=== PATIENT | male | born 1955 | race Caucasian/White ===

== ENCOUNTER 2016-10-24 03:06 | Emergency (ER) | payer OTHER ==
[~2016-10-24] VITALS: Ht 188 cm; Wt 138.3 kg
[~2016-10-24 03:06] MED LIST: AMLO2.5T PO; ASPI-231 PO; CLOP75TA28 PO
[2016-10-24 04:19] LABS: Basophils # (auto) 0.1 uL; Basophils % (auto) 0.4 % (0.0-2.0); Eosinophils # (auto) 0.3 uL; Eosinophils % (auto) 2.5 % (0.0-7.0); Hematocrit 47.4 % (41.0-53.0); Hemoglobin 15.9 g/dL (13.5-17.5); Lymphocytes # (auto) 3.4 uL; Lymphocytes % (auto) 26.4 % (10.0-50.0); Mean Corpuscular Hgb Conc. 33.5 g/dL (32.0-36.0); Mean Corpuscular Volume 89.7 fL (80.0-100.0); Mean Platelet Volume 9.9 fL (7.4-10.4); Monocytes % (auto) 8.1 % (0.0-12.0); Neutrophils % (auto) 62.6 % (37.0-80.0); Platelet Count (auto) 331 10^3/uL (140-450); Red Cell Distribution Width 14.2 % (11.6-16.0); White Blood Cell 12.8 10^3/uL (4.4-10.8)
[2016-10-24 04:37] LABS: Albumin 3.3 g/dL (3.4-5.0); Anion Gap 13 (5-15); Aspartate Aminotransferase 22 U/L (15-37); BUN/Creatinine Ratio 18.7; Blood Urea Nitrogen 25 mg/dL (7-18); Calcium 8.5 mg/dL (8.5-10.1); Carbon Dioxide 21 mmol/L (21-32); Chloride 111 mmol/L (98-107); GFR African American 69 mL/min; GFR Non-African American 57 mL/min; Glucose 81 mg/dL (74-106); Potassium 4.3 mmol/L (3.5-5.1); Sodium 145 mmol/L (136-145)
[2016-10-24 04:41] LABS: Alkaline Phosphatase 94 U/L (45-117); Bilirubin, Total 0.3 mg/dL (0.2-1.0); Total Protein 7.4 g/dL (6.4-8.2)
[2016-10-24] MEDS ORDERED: KETOROLAC TROMETH 30 MG/ML 1ML VIAL IV ONE (08:45)
[2016-10-24] MEDS ORDERED: cefTRIAXone 1GM/50ML D5W 50 ML IV ONE (08:45)
[2016-10-24] MEDS ORDERED: ONDANSETRON HCL 4 MG/2 ML VIAL IV ONE (08:45)
[2016-10-24] MEDS ORDERED: NITROGLYCERIN 0.4 MG SL TAB SL ONE (09:00)
[2016-10-24] MEDS ORDERED: ASPirin 81 mg TAB PO ONE (09:00)
[2016-10-24 12:19] VITALS: BP 118/68
== END 2016-10-24 13:15 | disposition home or self-care (01) ==
LOC: EDBD 03:06 → ER 03:06
DX: R07.89 Other chest pain (principal); J44.9 Chronic obstructive pulmonary disease, unspecified; J45.909 Unspecified asthma, uncomplicated; I25.810 Atherosclerosis of coronary artery bypass graft(s) without angina pectoris; I25.2 Old myocardial infarction; E11.9 Type 2 diabetes mellitus without complications; Z79.82 Long term (current) use of aspirin; Z88.2 Allergy status to sulfonamides; Z88.6 Allergy status to analgesic agent
CPT/HCPCS: 36415; 71010; 80053; 84484; 85025; 96365; 96366; 96372; 96375; 99285; J0696; J1885; J2405; J7030

== ENCOUNTER 2016-10-31 02:24 | Emergency (ER) | payer MEDICAID, OTHER ==
[~2016-10-31] VITALS: Ht 193 cm; Wt 131.5 kg
[2016-10-31 03:08] LABS: Basophils # (auto) 0.1 uL; Basophils % (auto) 0.6 % (0.0-2.0); CONDITION Y; Eosinophils # (auto) 0.4 uL; Eosinophils % (auto) 3.8 % (0.0-7.0); Hematocrit 44.6 % (41.0-53.0); Hemoglobin 14.8 g/dL (13.5-17.5); Lymphocytes # (auto) 2.8 uL; Lymphocytes % (auto) 29.9 % (10.0-50.0); Mean Corpuscular Hemoglobin 29.6 pg (28.0-32.0); Mean Corpuscular Hgb Conc. 33.3 g/dL (32.0-36.0); Mean Platelet Volume 9.9 fL (7.4-10.4); Monocytes # (auto) 0.7 uL; Monocytes % (auto) 7.8 % (0.0-12.0); Neutrophils # (auto) 5.5 uL; Neutrophils % (auto) 57.9 % (37.0-80.0); Platelet Count (auto) 247 10^3/uL (140-450); Red Cell Distribution Width 14.2 % (11.6-16.0); White Blood Cell 9.5 10^3/uL (4.4-10.8)
[2016-10-31 03:29] LABS: Albumin 3.2 g/dL (3.4-5.0); Anion Gap 11 (5-15); Aspartate Aminotransferase 15 U/L (15-37); BUN/Creatinine Ratio 23.5; Blood Urea Nitrogen 24 mg/dL (7-18); Calcium 8.2 mg/dL (8.5-10.1); Carbon Dioxide 22 mmol/L (21-32); Chloride 112 mmol/L (98-107); GFR African American 95 mL/min; GFR Non-African American 79 mL/min; Glucose 166 mg/dL (74-106); INR 0.98 (0.9-1.15); Magnesium 1.9 mg/dL (1.6-2.6); Partial Thromboplastin Time 25.9 sec (22.64-33.71); Potassium 3.9 mmol/L (3.5-5.1); Prothrombin Time 10.7 sec (9.37-12.3); Sodium 145 mmol/L (136-145)
[2016-10-31 03:36] LABS: Alkaline Phosphatase 85 U/L (45-117); Bilirubin, Total 0.3 mg/dL (0.2-1.0); Total Protein 6.5 g/dL (6.4-8.2)
[2016-10-31 03:40] LABS: B-Type Natriuretic Peptide 9.47 pg/mL (0-100)
[2016-10-31 03:41] LABS: Temperature: 23.4 C (20.0-25.0)
[2016-10-31] MEDS ORDERED: HYDROcodone-ACET 10/325MG TAB PO ONE (04:00)
[2016-10-31] MEDS ORDERED: ASPirin 81 mg TAB PO ONE (04:00)
[2016-10-31] MEDS ORDERED: ONDANSETRON HCL 4 MG/2 ML VIAL IV ONE (04:00)
[2016-10-31 09:17] VITALS: BP 124/70
[2016-10-31] MEDS ORDERED: NITROGLYCERIN 0.4 MG SL TAB SL ONE (10:00)
== END 2016-10-31 09:18 | disposition home or self-care (01) ==
LOC: EDBD 02:24 → ER 02:30
DX: R07.9 Chest pain, unspecified (principal); E11.9 Type 2 diabetes mellitus without complications; I10 Essential (primary) hypertension; R11.0 Nausea; J44.9 Chronic obstructive pulmonary disease, unspecified; I25.2 Old myocardial infarction; Z88.6 Allergy status to analgesic agent; Z88.1 Allergy status to other antibiotic agents; Z79.899 Other long term (current) drug therapy; I25.810 Atherosclerosis of coronary artery bypass graft(s) without angina pectoris; Z95.1 Presence of aortocoronary bypass graft
CPT/HCPCS: 36415; 71010; 80053; 83735; 83880; 84484; 85025; 85610; 85730; 93005; 96374; 99285; J2405

== ENCOUNTER 2017-02-22 17:25 | Emergency (ER) | payer OTHER ==
[~2017-02-22] VITALS: Ht 182.9 cm; Wt 127.0 kg
[~2017-02-22 17:25] MED LIST changes: +PERCOT PO
[2017-02-22 18:45] LABS: Basophils # (auto) 0.1 uL; Basophils % (auto) 0.9 % (0.0-2.0); Eosinophils # (auto) 0.2 uL; Hematocrit 44.5 % (41.0-53.0); Hemoglobin 15.1 g/dL (13.5-17.5); Lymphocytes # (auto) 1.9 uL; Lymphocytes % (auto) 16.4 % (10.0-50.0); Mean Corpuscular Hemoglobin 30.1 pg (28.0-32.0); Mean Corpuscular Hgb Conc. 33.9 g/dL (32.0-36.0); Mean Corpuscular Volume 88.8 fL (80.0-100.0); Monocytes % (auto) 8.5 % (0.0-12.0); Neutrophils # (auto) 8.3 uL; Neutrophils % (auto) 72.2 % (37.0-80.0); Nucleated Red Blood Cells % 0.1 %; Platelet Count (auto) 243 10^3/uL (140-450); Red Cell Distribution Width 14.4 % (11.8-14.3); White Blood Cell 11.4 10^3/uL (4.4-10.8)
[2017-02-22 19:13] LABS: B-Type Natriuretic Peptide 17.8 pg/mL (0-100); Temperature: 21.9 C (20.0-25.0)
[2017-02-22 19:26] LABS: Albumin 3.2 g/dL (3.4-5.0); Alkaline Phosphatase 138 U/L (45-117); Anion Gap 6 (5-15); Aspartate Aminotransferase 21 U/L (15-37); BUN/Creatinine Ratio 20.3; Bilirubin, Total 0.6 mg/dL (0.2-1.0); Blood Urea Nitrogen 26 mg/dL (7-18); Calcium 8.4 mg/dL (8.5-10.1); Carbon Dioxide 28 mmol/L (21-32); Chloride 104 mmol/L (98-107); GFR African American 73 mL/min; GFR Non-African American 61 mL/min; Glucose 231 mg/dL (74-106); Potassium 3.9 mmol/L (3.5-5.1); Sodium 138 mmol/L (136-145); Total Protein 7.2 g/dL (6.4-8.2)
[2017-02-22] MEDS ORDERED: ONDANSETRON HCL 4 MG/2 ML VIAL IV ONE (20:00)
[2017-02-22] MEDS ORDERED: HYDROmorphone HCL 2 MG/ML VL IV ONE (20:00)
[2017-02-22] MEDS ORDERED: HYDROmorphone HCL 2 MG/ML VL IM ONE (21:45)
[2017-02-22 22:30] VITALS: BP 146/83
== END 2017-02-22 21:42 | disposition home or self-care (01) ==
LOC: EDBD 17:25 → ER 17:32
DX: R07.9 Chest pain, unspecified (principal); E11.9 Type 2 diabetes mellitus without complications; R06.02 Shortness of breath; J44.9 Chronic obstructive pulmonary disease, unspecified; I25.810 Atherosclerosis of coronary artery bypass graft(s) without angina pectoris; I25.2 Old myocardial infarction; Z79.82 Long term (current) use of aspirin
CPT/HCPCS: 36415; 71010; 80053; 83735; 83880; 84484; 85025; 93005; 96372; 96374; 96375; 99285; J1170; J2405

== ENCOUNTER 2017-02-25 03:27 | Emergency (ER) | payer OTHER ==
[~2017-02-25] VITALS: Ht 193 cm; Wt 140.6 kg
[2017-02-25] MEDS ORDERED: ACETAMINOPHEN 500 MG TAB PO ONE (04:00)
[2017-02-25] MEDS ORDERED: ONDANSETRON ODT 4 MG TAB PO ONE (04:00)
[2017-02-25] MEDS ORDERED: PROMETHAZINE HCL 6.25 MG/5 ML ORAL SYRUP ONE (05:42)
[2017-02-25] MEDS ORDERED: PROMETHAZINE HCL 6.25 MG/5 ML ORAL SYRUP PO ONE (05:45)
[2017-02-25 05:54] VITALS: BP 161/100
== END 2017-02-25 06:02 | disposition home or self-care (01) ==
LOC: ER 03:29
DX: S02.2XXD Fracture of nasal bones, subsequent encounter for fracture with routine healing (principal); I25.810 Atherosclerosis of coronary artery bypass graft(s) without angina pectoris; J44.9 Chronic obstructive pulmonary disease, unspecified; E11.9 Type 2 diabetes mellitus without complications; I25.2 Old myocardial infarction; Z95.1 Presence of aortocoronary bypass graft; Z98.890 Other specified postprocedural states; Z79.82 Long term (current) use of aspirin; Y09 Assault by unspecified means; Z88.6 Allergy status to analgesic agent; Z88.1 Allergy status to other antibiotic agents; Z76.0 Encounter for issue of repeat prescription
CPT/HCPCS: 70450; 99284; Q0162